=== PATIENT | female | born 1950 | race Caucasian/White ===

== ENCOUNTER 2021-01-14 09:37 | Emergency (ER) | payer MEDICARE, SELFPAY ==
--- NOTE | ~2021-01-14 | XR_ITS ---
EXAMINATION: XR ankle LT min 3V DATE: 01/14/2021 10:21 INDICATION: Left ankle pain after fall TECHNIQUE: Anteroposterior, lateral, mortise, and additional oblique view of the ankle were obtained. COMPARISON: None. FINDINGS: There is lateral soft tissue swelling of ankle. Bone alignment is normal. There is no fract ure. A small plantar calcaneal enthesophyte is noted. IMPRESSION: 1. Ankle soft tissue swelling without acute osseous abnormality. Reviewed, dictated and finalized at location A.
[2021-01-14 09:40] VITALS: BP 151/78; PULSE 78; RESP 20; TEMP 37; O2SAT 98
--- NOTE | 2021-01-14 10:10 | ED.LOWEXIN ---
HPI - Extremity Injury (Lower) General Chief Complaint: Extremity Injury, Lower Stated Complaint: Left ankle Time Seen by Provider: 01/14/21 09:50 Source: patient Mode of arrival: ambulatory Limitations: no limitations History of Present Illness HPI Narrative: Patient states she twisted her ankle yesterday and has had swelling and pain in the left ankle since that time. Pain is moderately severe, becoming more severe when she walks. Ibuprofen worked to partially relieve the pain yesterday and this am she says. Pain in the left lateral ankle is dull at rest, more sharp with movement. She has associated swelling over the fibula area. Treatments prior to arrival: NSAIDS Related Data Home Medications Medication Instructions Recorded Confirmed Fish Oil 1 caplet PO DAILY 01/14/21 01/14/21 biotin 1 caplet PO DAILY 01/14/21 01/14/21 Allergies Allergy/AdvReac Type Severity Reaction Status Date / Time azithromycin [From Zithromax] AdvReac Hives Verified 01/14/21 10:16 Sulfa (Sulfonamide AdvReac Hives Verified 01/14/21 10:16 Antibiotics) Review of Systems Constitutional: Constitutional: Reports no additional constitutional complaints Eyes: Eyes: Reports no additional eye complaints ENT: Reports system reviewed and no additional complaints, except as documented Cardiovascular: Cardiovascular: Reports no additional cardiovascular complaints Respiratory: Respiratory: Reports no additional respiratory complaints Gastrointestinal: Gastrointestinal: Reports no additional gastrointestinal complaints Genitourinary: Genitourinary: Reports no additional female genitourinary complaints Musculoskeletal: Musculoskeletal: Reports no additional musculoskeletal complaints Integumentary/Breasts: Skin/Breast: Reports system reviewed and no additional complaints, except as docu Neurologic: Reports system reviewed and no additional complaints, except as documented Psychiatric: Psychiatric: Reports no additional psychiatric complaints Endocrine: Endocrine: Reports no additional endocrine complaints Hematologic/Lymphatic: Hematologic/Lymphatic: Reports no additional hematologic/lymphatic complaints Allergic/Immunologic: Allergic/Immunologic: Reports no additional allergic/immunologic complaints [facility] Past Medical History Medical History (Updated 01/14/21 @ 10:58 by Sam Medina MD) Meniscal injury Family History Family History (Updated 01/14/21 @ 10:59 by Sam Medina MD) Mother Diabetes mellitus Carcinoma of colon Social History Social History (Updated 01/14/21 @ 11:00 by Sam Medina MD) Smoking status: Never smoker Alcohol intake: never Additional occupation/education comments: retired RN Exam Const: General: no acute distress Orientation/consciousness: patient oriented x3 HENMT: Head: normal to inspection Ears: external ears normal and TM's normal bilaterally Face and sinus: normal facial exam Mouth: Yes Normal oral and palatal mucosa present Throat: posterior oropharynx normal Eyes: Conjunctivae: conjunctivae normal Neck: Neck: normal visual inspection Chest: Chest palpation & inspection: normal inspection of the chest Resp: Effort & Inspection: normal respiratory effort Auscultation: clear to auscultation bilaterally Cardio: Rate: regular rate Rhythm: regular rhythm Skin: General skin exam: normal color Neuro: General: patient oriented x3 Extrem: General: normal to inspection Psych: Appearance: grossly normal Mental Status: mental status grossly normal Course Course Emergency Course: Plain films of left ankle were reviewed Vital Signs Vital signs: Vital Signs Temperature 37.0 C 01/14/21 09:40 Pulse Rate 78 01/14/21 09:40 Respiratory Rate 20 01/14/21 09:40 Blood Pressure 151/78 H 01/14/21 09:40 Pulse Oximetry 98 01/14/21 09:40 Temperature 37.0 C 01/14/21 09:40 Pulse Rate 78 01/14/21 09:40 Respiratory Rate 20 01/14/21 09:40 Bl
[2021-01-14 10:37] VITALS: BP 151/78; PULSE 78; RESP 20; O2SAT 97
== END 2021-01-14 10:41 | disposition home or self-care (01) ==
PROVIDERS: Emergency Provider Emergency Medicine; PCP Family Medicine
DX: S93.402A Sprain of unspecified ligament of left ankle, initial encounter (principal); X50.1XXA Overexertion from prolonged static or awkward postures, initial encounter
CPT/HCPCS: 73610; 99282; 99283

== ENCOUNTER 2023-03-26 10:14 | Outpatient (CLI) | payer MEDICARE, SELFPAY ==
[2023-03-26 10:37] LABS: Hematocrit 45.4 % (35.0-42.0); Mean Corpuscular Hemoglobin 30.1 pg (27.0-31.0); Mean Platelet Volume 10.4 fl (9.2-11.8); Platelet Count Result 264 K/mm3 (150-420); Red Blood Count 4.99 M/mm3 (4.20-5.40)
[2023-03-26 11:09] LABS: Alanine Aminotransferase 33 U/L (14-59); Albumin Level 3.9 g/dL (3.4-5.0); Alkaline Phosphatase 71 U/L (46-116); Anion Gap 12 mmol/L (8-16); Aspartate Amino Transferase 28 U/L (15-37); Bilirubin,Total 0.5 mg/dL (0.00-1.00); Blood Urea Nitrogen 13 mg/dL (7-18); CRP < 0.5 mg/dL (0.0-0.9); Calcium 9.3 mg/dL (8.5-10.1); Carbon Dioxide 26 mmol/L (21-32); Chloride 105 mmol/L (98-108); Cholesterol 156 mg/dL (0-200); Estimated Glomerular Filt Rate > 60; Glucose 103 mg/dL (70-99); HDL Direct 36 mg/dL (40-60); LDL Cholesterol Calculated 92 mg/dL (<130); Lipase 52 U/L (16-77); Magnesium 1.9 mg/dL (1.8-2.4); NT Pro B Type Natriuretic Pept 39 pg/mL (0-125); Osmolality Calculated 296 mOsm/kg (285-295); Potassium 4.2 mmol/L (3.5-5.1); Sodium 143 mmol/L (136-145); Thyroid Stimulating Hormone 3.41 uIU/mL (0.36-3.74); Total Protein 7.1 g/dL (6.4-8.2); Triglycerides 141 mg/dL (0-150)
[2023-03-26 12:51] LABS: Hemoglobin A1C 5.6 % (<5.7)
[2023-03-29 18:46] LABS: H pylori, Urea Breath NOT DETECTED (NOT DETECTED)
== END 2023-03-26 10:15 | disposition home or self-care (01) ==
LOC: CHSLAB 10:16
PROVIDERS: PCP Nurse Practitioner Family; Visit Provider Nurse Practitioner Family
DX: R73.09 Other abnormal glucose (principal); Z68.33 Body mass index [BMI] 33.0-33.9, adult; R06.83 Snoring; R10.9 Unspecified abdominal pain; Z13.6 Encounter for screening for cardiovascular disorders; R06.09 Other forms of dyspnea
CPT/HCPCS: 36415; 80053; 80061; 83013; 83036; 83690; 83735; 83880; 84443; 85027; 86140

== ENCOUNTER 2023-04-02 16:56 | Outpatient (CLI) | payer MEDICARE, SELFPAY ==
--- NOTE | ~2023-04-02 | US_ITS ---
US abdomen complete EXAMINATION: US Abdomen Complete INDICATION: Epigastric pain. [employer]. PROCEDURE: Realtime High Resolution abdomen ultrasound. COMPARISON: No prior studies for comparison FINDINGS: There are small gallbladder polyps measuring 3 mm or less. Common bile duct measures 4 mm. Liver echotexture is increased, consistent with fatty infiltration.. Pancreas within normal limits. Pancreatic tail is obscured by bowel gas. Spleen is unremarkeable. Renal echotexture is within norm al limits bilaterally without hydronephrosis, contour deforming mass or renal stone. Right kidney tiffany sures 10 cm. Left kidney measures 9.4 cm. Visualized aspects of the aorta and IVC are within normal limits. Portal vein is patent. No sonograph ic Crawford's sign indicated by the technologist. IMPRESSION: 1: Small gallbladder polyps measuring 3 mm or less. 2: Hepatic steatosis. Reviewed, dictated and finalized at [facility].
== END 2023-04-02 16:57 | disposition home or self-care (01) ==
LOC: CHSIMG 16:58
PROVIDERS: PCP Nurse Practitioner Family; Visit Provider Nurse Practitioner Family
DX: R10.9 Unspecified abdominal pain (principal); K82.4 Cholesterolosis of gallbladder; K76.0 Fatty (change of) liver, not elsewhere classified
CPT/HCPCS: 76700

== ENCOUNTER 2023-04-15 10:04 | Outpatient (CLI) | payer MEDICARE, SELFPAY ==
[2023-04-21 14:02] LABS: Carcinoembryonic Antigen <2.0 ng/mL (0.0-2.4)
== END 2023-04-15 10:05 | disposition home or self-care (01) ==
LOC: CHSLAB 10:07
PROVIDERS: PCP Nurse Practitioner Family; Visit Provider Nurse Practitioner Family
DX: R10.9 Unspecified abdominal pain (principal); R79.89 Other specified abnormal findings of blood chemistry
CPT/HCPCS: 36415; 82378

== ENCOUNTER 2023-05-23 08:12 | Outpatient (CLI) | payer MEDICARE, SELFPAY ==
--- NOTE | ~2023-05-23 | DEXA_ITS ---
Bone Density Report Name: QUIANA POWELL Age: 72 Sex: Female Ethnicity: White Date of : 1950 Indication: postmenopausal; screening for osteoporosis; height loss; Referring Provider: NUBIA BRITO Study: Bone densitometry was performed. Exam Date: May 23, 2023 Accession number: [id number] Bone Density: Region BMD T-score Z-score Classification AP Spine(L1-L4) 1.007 -0.4 1.9 Normal Femoral Neck (Left) 0.677 -1.5 0.4 Osteopenia Total Hip (Left) 0.804 -1.1 0.5 Osteopenia Femoral Neck (Right) 0.651 -1.8 0.1 Osteopenia Total Hip (Right) 0.822 -1.0 0.6 Normal Femoral Neck Mean 0.664 -1.7 0.2 Osteopenia Total Hip Mean 0.813 -1.1 0.5 Osteopenia World Health Organization criteria for BMD impression classify patients as: Normal (T-score at or above -1.0), Osteopenia (T-score between -1.0 and -2.5), or Osteoporosis (T-score at or below -2.5). 10-year Fracture Risk(1): Major Osteoporotic Fracture 10% Hip Fracture 1.8% Reported Risk Factors: [place] (), Neck BMD=0.651, BMI=32.9 (1) FRAX(R) Version 3.08. Fracture probability calculated for an untreated patient. Fracture probability may be lower if the patient has received treatment. Clinical Information Provided by Patient: Patient maximum height was 64 Menopause Age: 51 Onset of menses at age 13 Number of children 2 Impression: The patient has low bone mass, based on the Right Femoral Neck T-score. Discussion: BONE DENSITY IS LOW AT ONE OR MORE SKELETAL SITES. This patient's lowest T-score is low at one or more skeletal sites. It meets the World Health Organization's (WHO) criteria for ?low bone mass? (T-score between -1.0 and -2.5). The patient's 10-year risk of fracture as calculated by FRAX is less than the threshold where pharmacological therapy is recommended by the National Osteoporosis Foundation (NOF). However, all treatment decisions require clinical judgment and consideration of individual patient factors, including patient preferences, comorbidities, previous drug use, risk factors not captured in the FRAX model (e.g., frailty, falls, vitamin D deficiency, increased bone turnover, interval significant decline in bone density) and possible under or overestimation of fracture risk by FRAX. The patient should follow a healthful lifestyle (good nutrition with adequate calcium and vitamin D, and appropriate weight-bearing exercise). Follow-Up: Consider repeating this study in 2 to 3 years to reassess this patient's status, or sooner if there is some new clinical indication. Reported by: Dr. Adrian Henning on 05/23/2023 8:40:00 AM. Reviewed, dictated and finalized at location [facility] JULIAN
== END 2023-05-23 08:13 | disposition home or self-care (01) ==
LOC: CHSIMG 08:15
PROVIDERS: PCP Nurse Practitioner Family; Visit Provider Nurse Practitioner Family
DX: Z78.0 Asymptomatic menopausal state (principal); M85.89 Other specified disorders of bone density and structure, multiple sites
CPT/HCPCS: 77080